=== PATIENT | male | born 1975 | race Caucasian/White ===

== ENCOUNTER 2017-03-07 08:30 | Day surgery (SDC) | payer MEDICARE ==
[~2017-03-07 08:30] MED LIST: Kenalog-40 IM ONE; Lactated Ringers 1,000 ML IV ONE; Sensorcaine 0.25% 10 ML IJ ONE
[2017-03-07] MEDS ORDERED: DIPRIVAN 200 MG/20 ML IV ONE (11:30)
--- NOTE | 2017-03-07 17:19 | XRAY ---
11 seconds fluoroscopy time in surgery for right side L2-L5 MBB.
--- NOTE | 2017-03-09 02:24 | XRAY ---
Indication: Right L2-L5 MBB. Intraoperative fluoroscopy was provided for 11 seconds. Single digital spot image submitted for interpretation demonstrates posterior spinal needles with the tips projected over the expected course of the right L2-L5 nerve roots. Correlate with intraoperative findings/report.
== END 2017-03-07 11:15 | disposition home or self-care (01) ==
LOC: SDC-PAIN 08:30
PROVIDERS: ATTEND Pain Medicine Interventional Pain Medicine
DX: M47.816 Spondylosis without myelopathy or radiculopathy, lumbar region (principal); G71.0 Muscular dystrophy; M54.5 Low back pain; M51.36 Other intervertebral disc degeneration, lumbar region
CPT/HCPCS: 64493; 64494; 64495; 72020; 77003; J2704; J3301

== ENCOUNTER 2018-01-16 10:14 | Day surgery (SDC) | payer MEDICARE ==
[~2018-01-16 10:14] MED LIST changes: -Kenalog-40 IM ONE; +LIDOCAINE HCL 2% 100 MG/5 ML ONE; -Lactated Ringers 1,000 ML IV ONE; +Marcaine 0.5% SDV 10 ML ONE; -Sensorcaine 0.25% 10 ML IJ ONE; +Xylocaine-Mpf 2 ML ONE
[2018-01-16] MEDS ORDERED: DIPRIVAN 200 MG/20 ML IV ONE (10:15)
--- NOTE | 2018-01-16 13:26 | XRAY ---
Indication: L4-L5 and L5-S1 RFA. Intraoperative fluoroscopy was provided for 36 seconds. 5 digital spot images submitted for interpretation demonstrates 3 posterior spinal needle tips projecting over the right L3-L4, L4-L5, and L5-S1 facets. Correlate with intraoperative findings/report.
--- NOTE | 2018-01-17 09:54 | OP ---
DATE OF PROCEDURE: 01/16/2018 1238 SURGEON: Ade Rowley D.O. PREOPERATIVE DIAGNOSIS: Degenerative lumbosacral spine disease, spondylosis, low back pain. POSTOPERATIVE DIAGNOSIS: Degenerative lumbosacral spine disease, spondylosis, low back pain. PROCEDURES PERFORMED: Right L5, L4, L3 medial branch radiofrequency ablation under fluoroscopic guidance. DESCRIPTION OF PROCEDURE: The patient was taken to the operating room and laid in the prone position on the table. The skin over the injection site was prepped and draped in sterile fashion. Under fluoroscopy bony anatomy of the target injection site was visualized. Induction agent was given as per anesthesia while vital signs were monitored. Local anesthetic agent was introduced to anesthetize the skin and the subcutaneous tissue through the injection site. Under fluoroscopic guidance a standard size spinal needle with cannula was advanced into the target medial branch nerve as per standard protocol. Before the radiofrequency ablation motor and sensory nerve testing was conducted as per protocol. Under the safety guidance which ensured no motor nerves being involved, right L5, L4, L3 medial branch radiofrequency ablation was conducted at 80 degrees Celsius for 90 seconds as per standard protocol. After the spinal needle with the cannula was removed the skin was cleansed with alcohol and then a bandage was applied. No complications or adverse occurrences were observed. The patient was returned to the holding area until stabilized before being discharged to home. The preoperative pain level was 9 out of 10 and the postoperative pain level is 1 out of 10. The patient will be followed up within 10 days after the procedure for re-evaluation.
--- NOTE | 2018-01-17 16:30 | XRAY ---
36 seconds of fluoroscopy was used in surgery for L4-5 and L5-S1 right RFA.
== END 2018-01-16 13:32 | disposition home or self-care (01) ==
LOC: SDC-PAIN 10:14
PROVIDERS: ATTEND Internal Medicine
DX: M54.5 Low back pain (principal); M46.96 Unspecified inflammatory spondylopathy, lumbar region; G71.0 Muscular dystrophy; Z79.891 Long term (current) use of opiate analgesic
CPT/HCPCS: 64635; 72020; 77003; J2704

== ENCOUNTER 2018-02-27 09:55 | Day surgery (SDC) | payer MEDICARE ==
[2018-02-27] MEDS ORDERED: DIPRIVAN 200 MG/20 ML IV ONE (09:56)
[2018-02-27] MEDS ORDERED: Marcaine 0.5% SDV 10 ML IJ ONE (09:56)
[2018-02-27] MEDS ORDERED: Xylocaine 1% Vial 30 ML PF IJ ONE (09:56)
[2018-02-27] MEDS ORDERED: Lactated Ringers 1,000 ML IV ONE (12:05)
--- NOTE | 2018-02-27 13:33 | XRAY ---
Indication: Left L4-S1 MBB. Intraoperative fluoroscopy was provided for 31 seconds. 4 digital spot images submitted for interpretation demonstrates posterior spinal needle tips projecting over the expected course of the left L4, L5, and S1 nerve roots. Correlate with intraoperative findings/report.
--- NOTE | 2018-02-27 13:37 | XRAY ---
31 seconds fluoroscopy time in surgery for left L5-S1 MBB.
--- NOTE | 2018-02-28 09:12 | OP ---
DATE OF PROCEDURE: 02/27/2018 1135 SURGEON: Ade Rowley D.O. PREOPERATIVE DIAGNOSIS: Degenerative lumbar spine disease, spondylosis, low back pain, baseline muscular dystrophy. POSTOPERATIVE DIAGNOSIS: Degenerative lumbar spine disease, spondylosis, low back pain, baseline muscular dystrophy. PROCEDURE PERFORMED: Left L5, L4, L3 medial branch block under fluoroscopic guidance. DESCRIPTION OF THE PROCEDURE: The patient was taken to the operating room and placed in the prone position on the table. Skin at the injection site was prepped and draped in sterile fashion. Under fluoroscopy, bony anatomy of the targeted injection site was visualized. Induction agent was given as per anesthesia while vital signs were monitored. Local anesthetic agent used 5 cc of 1% lidocaine preservative-free. Under fluoroscopic guidance, a #20 gauge standard spinal needle was advanced into the target medial branch through the oblique approach. The medication used for this procedure is preservative-free 0.5 cc of mixed half volume of 1% lidocaine plus half volume of 0.5% Marcaine to each injection site. After the needle was being removed, the skin was cleansed with alcohol and then a bandage was applied. No complications or adverse consequences were observed. The patient was returned to the holding area until stabilized before discharge to home. Preoperative pain level is 9.5 out of 10 and postoperative pain level is 0 out of 10. The patient will be followed up within ten days after the injection for re-evaluation.
== END 2018-02-27 12:12 | disposition home or self-care (01) ==
LOC: SDC-PAIN 09:55
PROVIDERS: ATTEND Internal Medicine
DX: M54.5 Low back pain (principal); M46.96 Unspecified inflammatory spondylopathy, lumbar region; G71.0 Muscular dystrophy; M51.36 Other intervertebral disc degeneration, lumbar region; Z79.891 Long term (current) use of opiate analgesic
CPT/HCPCS: 64493; 64494; 64495; 72020; 77003; J2001; J2704

== ENCOUNTER 2018-07-24 10:50 | Day surgery (SDC) | payer MEDICARE ==
[2018-07-24] MEDS ORDERED: Depo-Medrol 40 MG/ML IM ONE (10:51)
[2018-07-24] MEDS ORDERED: DIPRIVAN 200 MG/20 ML IV ONE (10:51)
[2018-07-24] MEDS ORDERED: Xylocaine-Mpf 2% 5 Ml Vial IJ ONE (10:51)
[2018-07-24] MEDS ORDERED: Lactated Ringers 1,000 ML IV ONE (11:33)
--- NOTE | 2018-07-24 13:20 | XRAY ---
Indication: Left L4-S1 MBB. Intraoperative fluoroscopy was provided for 15 seconds. Single digital spot image submitted for interpretation demonstrates left posterior spinal needle tips projecting over the expected course of the left L4-S1 nerve roots. Correlate with intraoperative findings/report.
--- NOTE | 2018-07-24 14:34 | XRAY ---
15 seconds fluoroscopy time in surgery for left L4-S1 MBB.
== END 2018-07-24 12:15 | disposition home or self-care (01) ==
LOC: SDC-PAIN 10:50
PROVIDERS: ATTEND Psychiatry & Neurology Pain Medicine
DX: M47.9 Spondylosis, unspecified (principal)
CPT/HCPCS: 72020; 76000; J1030; J2704

== ENCOUNTER 2018-09-18 11:31 | Day surgery (SDC) | payer MEDICARE ==
[2018-09-18] MEDS ORDERED: Xylocaine 1% Vial 30 ML PF IJ ONE (11:32)
[2018-09-18] MEDS ORDERED: Depo-Medrol 40 MG/ML IM ONE (11:32)
[2018-09-18] MEDS ORDERED: Sodium Chloride 0.9(Preservative Free) 10 ML IJ ONE (11:32)
[2018-09-18] MEDS ORDERED: DIPRIVAN 200 MG/20 ML IV ONE (11:32)
--- NOTE | 2018-09-18 14:22 | XRAY ---
Indication: L4-L5 CHRISTIAN. Intraoperative fluoroscopy was provided for 12 seconds. 2 digital spot images submitted for interpretation demonstrates a midline spinal needle tip just posterior to the L4-L5 interspace. Correlate with intraoperative findings/report.
--- NOTE | 2018-09-18 14:26 | XRAY ---
12 seconds of fluoroscopy was used in surgery for L4-L5 CHRISTIAN.
[2018-09-18] MEDS ORDERED: Lactated Ringers 1,000 ML IV ONE (14:47)
== END 2018-09-18 13:43 | disposition home or self-care (01) ==
LOC: SDC-PAIN 11:31
PROVIDERS: ATTEND Psychiatry & Neurology Pain Medicine
DX: M54.16 Radiculopathy, lumbar region (principal)
CPT/HCPCS: 62322; 72020; 77003; J1030; J2001; J2704; Q9966

== ENCOUNTER 2019-02-12 11:55 | Day surgery (SDC) | payer MEDICARE ==
[2019-02-12] MEDS ORDERED: Ketamine HCl 50 MG/ML IV ONE (11:56)
[2019-02-12] MEDS ORDERED: Depo-Medrol 40 MG/ML IM ONE (11:56)
[2019-02-12] MEDS ORDERED: LIDOCAINE HCL 2% 100 MG/5 ML IJ ONE (11:56)
[2019-02-12] MEDS ORDERED: DIPRIVAN 200 MG/20 ML IV ONE (11:56)
[2019-02-12] MEDS ORDERED: Lactated Ringers 1,000 ML IV ONE (13:49)
--- NOTE | 2019-02-12 15:28 | XRAY ---
Indication: Right L4-S1 MBB. Intraoperative fluoroscopy was provided for 6 seconds. Single digital spot image submitted for interpretation demonstrates posterior needle tips projecting over the expected course of the right L4-S1 nerve roots. Correlate with intraoperative findings/report.
--- NOTE | 2019-02-12 15:30 | XRAY ---
6 seconds of fluoroscopy was used in surgery for right L4-L5 and L5-S1 MBB.
== END 2019-02-12 12:51 | disposition home or self-care (01) ==
LOC: SDC-PAIN 11:55
PROVIDERS: ATTEND Psychiatry & Neurology Pain Medicine
DX: M47.816 Spondylosis without myelopathy or radiculopathy, lumbar region (principal); G71.00 Muscular dystrophy, unspecified; K21.9 Gastro-esophageal reflux disease without esophagitis; M19.90 Unspecified osteoarthritis, unspecified site; F32.9 Major depressive disorder, single episode, unspecified
CPT/HCPCS: 64493; 64494; 72020; 77002; J1030; J2704